=== PATIENT | female | born 1945 | race American Indian/Alaskan Native ===

== ENCOUNTER 2021-04-13 12:13 | Inpatient (IN) | payer MEDICARE ==
--- NOTE | 2021-04-13 19:34 | Consultation ---
History of Present Illness - Reason for Consult Consult date: 04/13/21 Medical management Requesting physician: JASON OSHEA - History of Present Illness 75 YO Female with Vascular Dementia with Behavioral Disturbance, Cerebral Atherosclerosis, HTN, DM, Gout, Hypothyroidism, Mild Intermittent Asthma, Osteoperosis, LDD admitted to [facility] for psychiatric stabilization. Patient seen and evaluated in the recreation room. No reported nursing events. Patient denies fever, chills, chest pain, palpitation, productive cough, skin rash, recent ill contact, or known exposure to COVID-19. Past History Past Medical History: diabetes, hypertension, hypothyroidism, other (See HPI) Past Surgical History: total hip replacement, Other (Pacemaker placement) Social history: single Family history: diabetes, hypertension Medications and Allergies Allergies Allergy/AdvReac Type Severity Reaction Status Date / Time No Known Allergies Allergy Unverified 04/13/21 15:01 Home Medications Medication Instructions Recorded Confirmed Last Taken Type Furosemide [Lasix TAB] 40 mg PO QDAY 04/13/21 04/13/21 Unknown History Levothyroxine [Synthroid] 75 mcg PO QAM 04/13/21 04/13/21 Unknown History Magnesium Oxide [Mag-Ox] 400 mg PO BID 04/13/21 04/13/21 Unknown History Montelukast [Singulair] 10 mg PO QPM 04/13/21 04/13/21 Unknown History OLANZapine [Olanzapine] 5 mg PO Q4HR PRN 04/13/21 04/13/21 04/11/21 17:39 History allopurinoL [Zyloprim] 150 mg PO QDAY 04/13/21 04/13/21 Unknown History calcitrioL [Rocaltrol] 0.25 mcg PO QWEEK 04/13/21 04/13/21 04/12/21 09:00 History cloNIDine [Catapres] 0.1 mg PO DAILY 04/13/21 04/13/21 Unknown History glipiZIDE [Glucotrol] 5 mg PO QDAY 04/13/21 04/13/21 Unknown History hydrALAZINE [Apresoline] 50 mg PO TID 04/13/21 04/13/21 Unknown History methocarbamoL [Methocarbamol] 500 mg PO TID PRN 04/13/21 04/13/21 Unknown History Review of Systems Constitutional: no weight loss, no weight gain, no fever, no chills Ears, nose, mouth and throat: no ear pain, no decreased hearing, no nose pain, no sinus pressure Cardiovascular: no chest pain, no palpitations, no edema, no syncope Respiratory: no cough, no excessive sputum, no hemoptysis Gastrointestinal: no abdominal pain, no nausea Genitourinary Female: no pelvic pain, no flank pain, no dysuria Rectal: no pain, no incontinence, no bleeding Musculoskeletal: no neck stiffness, no shooting arm pain, no low back pain, no leg numbness/tingling, no redness of joints Integumentary: no rash, no pruritis, no redness, no sores, no wounds Neurological: no transient paralysis, no weakness, no tingling, no seizures, no syncope Psychiatric: no anxiety, no change in sleep habits, no insomnia Endocrine: no cold intolerance, no heat intolerance, no polyphagia, no excessive thirst, no nocturia Hematologic/Lymphatic: no easy bruising, no easy bleeding, no lymphedema Allergic/Immunologic: no urticaria, no allergic rhinitis, no anaphylaxis Exam - Constitutional General appearance: Present: obese - EENT Eyes: Present: PERRL ENT: hearing intact, clear oral mucosa - Neck Neck: Present: supple, normal ROM - Respiratory Respiratory effort: normal Respiratory: bilateral: CTA - Cardiovascular Heart Sounds: Present: S1 & S2. Absent: rub, click - Extremities Extremities: pulses symmetrical, No edema Peripheral Pulses: within normal limits - Abdominal General gastrointestinal: Present: soft, non-tender, non-distended, normal bowel sounds Female genitourinary: Present: normal - Integumentary Integumentary: Present: clear, warm, dry - Musculoskeletal Musculoskeletal: gait normal, strength equal bilaterally - Psychiatric Psychiatric: appropriate mood/affect, intact judgment & insight - Neurologic Neurologic: CNII-XII intact, moves all extremities Results - Labs CBC & Chem 7: 04/15/21 05:37 04/15/21 05:37 Assessment and Plan - Patient Problems (1) Vascular dementia with behavior disturbance Current Visit: Yes Status: Acute Plan to address problem: Verbal prompting, verbal redirection, some benzodiazepine therapy as clinically indicated. (2) HTN (hypertension) Current Visit: Yes Status: Acute Qualifiers: Hypertension type: primary hypertension Qualified Code(s): I10 - Essential (primary) hypertension Plan to address problem: Monitor blood pressure every shift, continue medical management. (3) Diabetes Current Visit: Yes Status: Acute Plan to address problem: Consistent carbohydrate diet, insulin protocol, hypoglycemia protocol. (4) Gout Current Visit: Yes Status: Chronic Plan to address problem: Pain control, continue medical management. (5) Hypothyroidism Current Visit: Yes Status: Acute Plan to address problem: Continue Synthroid therapy, (6) Cerebral atherosclerosis Current Visit: Yes Status: Acute Plan to address problem: Risk factor reduction, antiplatelet therapy,
[2021-04-13] MEDS: MAGNESIUM OXIDE 400 MG TAB PO SCH (21:30)
[2021-04-13] MEDS: hydrALAZINE 25 MG TAB PO SCH (21:30)
[2021-04-14] MEDS: LEVOTHYROXINE 75 MCG TAB PO SCH (05:52)
[2021-04-14] MEDS: hydrALAZINE 25 MG TAB PO SCH ×3 (08:58→20:24)
[2021-04-14] MEDS: MAGNESIUM OXIDE 400 MG TAB PO SCH ×2 (09:19→21:56)
[2021-04-14] MEDS: cloNIDine 0.1 MG TAB PO SCH (09:20)
[2021-04-14] MEDS: allopurinoL 100 MG TAB PO SCH (09:20)
[2021-04-14] MEDS: FUROSEMIDE 40 MG TAB PO SCH (09:20)
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
[2021-04-14] MEDS ORDERED: hydrOXYzine PAMOATE 25 MG CAP PO PRN (11:00)
[2021-04-14] MEDS: glipiZIDE 5 MG TAB PO SCH (11:30)
[2021-04-14] MEDS: SERTRALINE 25 MG TAB PO SCH (13:32)
[2021-04-14] MEDS: MONTELUKAST 10 MG TAB PO SCH (17:24)
[2021-04-14] MEDS ORDERED: DEXTROSE 50% IN WATER (25GM) 50 ML SYRINGE IV PRN (17:43)
[2021-04-14] MEDS: INSULIN LISPRO 100 UNIT/ML SUB-Q SCH (20:22)
[2021-04-15] MEDS: INSULIN LISPRO 100 UNIT/ML SUB-Q SCH ×5 (03:12→21:39)
[2021-04-15] MEDS: LEVOTHYROXINE 75 MCG TAB PO SCH (05:48)
[2021-04-15 07:15] LABS: Albumin 2.7 g/dL (3.9-5); Chol/HDL Ratio 3.21 %
[2021-04-15] MEDS: hydrALAZINE 25 MG TAB PO SCH ×3 (08:49→20:21)
[2021-04-15] MEDS: MAGNESIUM OXIDE 400 MG TAB PO SCH ×2 (10:06→21:39)
[2021-04-15] MEDS: cloNIDine 0.1 MG TAB PO SCH (10:07)
[2021-04-15] MEDS: SERTRALINE 25 MG TAB PO SCH (10:07)
[2021-04-15] MEDS: allopurinoL 100 MG TAB PO SCH (10:07)
[2021-04-15] MEDS: FUROSEMIDE 40 MG TAB PO SCH (10:07)
[2021-04-15] MEDS: glipiZIDE 5 MG TAB PO SCH (10:07)
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
[2021-04-15 11:07] LABS: Hematocrit 30.4 % (30.3-42.9); Hemoglobin 9.9 gm/dl (10.1-14.3); Mean Corpuscular HGB Conc 32 % (30-34); Mean Corpuscular Volume 80 fl (79-97); Platelet Count 167 K/mm3 (140-440); Red Cell Distribution Width 17.3 % (13.2-15.2)
[2021-04-15 14:55] LABS: Band Neutrophils # (Manual) 0.1 K/mm3; Total Cells Counted 100
[2021-04-15] MEDS: MONTELUKAST 10 MG TAB PO SCH (18:04)
[2021-04-16] MEDS: LEVOTHYROXINE 75 MCG TAB PO SCH (06:04)
[2021-04-16] MEDS: INSULIN LISPRO 100 UNIT/ML SUB-Q SCH ×4 (06:59→21:06)
--- NOTE | 2021-04-16 08:21 | Progress Note ---
Subjective Date of service: 04/16/21 Principal diagnosis: Dementia with Behavioral Disturbance Subjective Comment: The patient was seen in her room. The patient reports mood as "ok"; she presents with some confusion, unable to state the current month and her location. Unable to assess SI/HI AVHs due to her state of confusion. Per nurse, " Patient has minimum interactions with peers, at confused and forgetful, she was medication compliant, [place] patient requires sba assistance getting up from bed to wheelchair, slept for approximately 5 1/2hrs. Current laying in bed awake, no distress noted. Will continue to monitor." REVIEW OF SYSTEMS Constitutional: Negative for weight loss ENT: Negative for stridor Respiratory: Negative for cough or hemoptysis All other systems reviewed and are negative MENTAL STATUS EXAMINATION General Appearance and Behavior: Age appropriate, good hygiene, wearing appropriate clothes. Cooperation: Cooperative Psychomotor Behavior: Psychomotor normal Mood: "ok" Affect and affective range: congruent with stated mood, tearful Thought Process: circumstantial, confused Thought Content: Not suicidal Speech: Normal volume, Regular rate and rhythm, Suicidal Ideation: Denies Homicidal Ideation: Denies Hallucinations: Denies Delusions: None Impulse Control: Impaired Insight and Judgment: fair Memory: Poor Attention: Distractible Orientation: Alert and oriented to self Assessment and Plan (1) Dementia with Behavioral Disturbance Treatment Plan Patient admitted for inpatient psychiatric evaluation, medication adjustment and close monitoring The patient's behavior, mood, sleep and appetite will be closely monitored. Patient enrolled in individual and group therapeutic sessions and encouraged to attend. Patient provided with a safe and structured environment. Patient's physical health needs will be addressed by the Hospitalist. Hospitalist Consulted Labs including CBC, CMP, Lipid profile and Hemoglobin A1C levels ordered for baseline reference Social Assessment will be completed and the Wastewater Project Manager will work with patient and family to ensure a suitable and safe disposition Medication adjustment will be made as clinically indicated No changes made today Continue Zoloft 25mg po daily Continue Vistaril 25mg po BID Usual Wellness Mormon/Preservation: - Start Trazodone 50 mg po QHS & 50 mg po QHS PRN between 10 PM & 2 AM for insomnia - Start Melatonin 5 mg po QHS to promote circadian rhythm The patient agreed on the treatment plan, understood the risk, benefit, alternative treatment, potential consequence of no treatment, and gave informed consent. Estimated days: 5 Post hospital care: primary care provider, psychiatric provider Case staffed with Dr. Diaz Medications and Allergies Medications and Allergies Allergies Allergy/AdvReac Type Severity Reaction Status Date / Time No Known Allergies Allergy Unverified 04/13/21 15:01 Home Medications Medication Instructions Recorded Confirmed Last Taken Type Furosemide [Lasix TAB] 40 mg PO QDAY 04/13/21 04/13/21 Unknown History Levothyroxine [Synthroid] 75 mcg PO QAM 04/13/21 04/13/21 Unknown History Magnesium Oxide [Mag-Ox] 400 mg PO BID 04/13/21 04/13/21 Unknown History Montelukast [Singulair] 10 mg PO QPM 04/13/21 04/13/21 Unknown History OLANZapine [Olanzapine] 5 mg PO Q4HR PRN 04/13/21 04/13/21 04/11/21 17:39 History allopurinoL [Zyloprim] 150 mg PO QDAY 04/13/21 04/13/21 Unknown History calcitrioL [Rocaltrol] 0.25 mcg PO QWEEK 04/13/21 04/13/21 04/12/21 09:00 History cloNIDine [Catapres] 0.1 mg PO DAILY 04/13/21 04/13/21 Unknown History glipiZIDE [Glucotrol] 5 mg PO QDAY 04/13/21 04/13/21 Unknown History hydrALAZINE [Apresoline] 50 mg PO TID 04/13/21 04/13/21 Unknown History methocarbamoL [Methocarbamol] 500 mg PO TID PRN 04/13/21 04/13/21 Unknown History Active Meds: Active Medications Allopurinol (Allopurinol 100 Mg Tab) 150 mg PO QDAY [facility] Last Admin: 04/15/21 10:07 Dose: 150 mg Documented by: Calcitriol (Calcitriol 0.25 Mcg Cap) 0.25 mcg PO [facility] [place] HCl (Clonidine 0.1 Mg Tab) 0.1 mg PO DAILY [facility] Last Admin: 04/15/21 10:07 Dose: 0.1 mg Documented by: Dextrose (Dextrose 50% In Water (25gm) 50 Ml Syringe) 50 ml IV Q30MIN PRN; Protocol PRN Reason: Hypoglycemia Furosemide (Furosemide 40 Mg Tab) 40 mg PO QDAY [facility] Last Admin: 04/15/21 10:07 Dose: 40 mg Documented by: Glipizide (Glipizide 5 Mg Tab) 5 mg PO QDAY [facility] Last Admin: 04/15/21 10:07 Dose: 5 mg Documented by: Hydralazine HCl (Hydralazine 25 Mg Tab) 50 mg PO TID [facility] Last Admin: 04/15/21 20:21 Dose: 50 mg Documented by: Hydroxyzine Pamoate (Hydroxyzine Pamoate 25 Mg Cap) 25 mg PO BID PRN PRN Reason: Anxiety Insulin Human Lispro (Insulin Lispro 100 Unit/Ml) 0 unit SUB-Q ACHS [facility]; Protocol Last Admin: 04/16/21 06:59 Dose: 2 unit Documented by: Levothyroxine Sodium (Levothyroxine 75 Mcg Tab) 75 mcg PO 0600 [facility] Last Admin: 04/16/21 06:04 Dose: 75 mcg Documented by: Magnesium Oxide (Magnesium Oxide 400 Mg Tab) 400 mg PO BID [facility] Last Admin: 04/15/21 21:39 Dose: 400 mg Documented by: Methocarbamol (Methocarbamol 500 Mg Tab) 500 mg PO TID PRN PRN Reason: muscle spasms Montelukast Sodium (Montelukast 10 Mg Tab) 10 mg PO QPM [facility] Last Admin: 04/15/21 18:04 Dose: 10 mg Documented by: Sertraline HCl (Sertraline 25 Mg Tab) 25 mg PO QDAY [facility] Last Admin: 04/15/21 10:07 Dose: 25 mg Documented by: Results - Results Labs/Vitals: Laboratory Last Values WBC 7.3 K/mm3 (4.5-11.0) 04/15/21 05:37 RBC 3.80 M/mm3 (3.65-5.03) 04/15/21 05:37 Hgb 9.9 gm/dl (10.1-14.3) L 04/15/21 05:37 Hct 30.4 % (30.3-42.9) 04/15/21 05:37 MCV 80 fl (79-97) 04/15/21 05:37 MCH 26 pg (28-32) L 04/15/21 05:37 MCHC 32 % (30-34) 04/15/21 05:37 RDW 17.3 % (13.2-15.2) H 04/15/21 05:37 Plt Count 167 K/mm3 (140-440) 04/15/21 05:37 Add Manual Diff Complete 04/15/21 05:37 Total Counted 100 04/15/21 05:37 Seg Neuts % (Manual) 63.0 % (40.0-70.0) 04/15/21 05:37 Band Neutrophils % 1.0 % 04/15/21 05:37 Lymphocytes % (Manual) 31.0 % (13.4-35.0) 04/15/21 05:37 Monocytes % (Manual) 3.0 % (0.0-7.3) 04/15/21 05:37 Eosinophils % (Manual) 1.0 % (0.0-4.3) 04/15/21 05:37 Metamyelocytes % 1.0 % 04/15/21 05:37 Nucleated RBC % Not Reportable 04/15/21 05:37 Seg Neutrophils # Man 4.6 K/mm3 (1.8-7.7) 04/15/21 05:37 Band Neutrophils # 0.1 K/mm3 04/15/21 05:37 Lymphocytes # (Manual) 2.3 K/mm3 (1.2-5.4) 04/15/21 05:37 Abs React Lymphs (Man) 0.0 K/mm3 04/15/21 05:37 Monocytes # (Manual) 0.2 K/mm3 (0.0-0.8) 04/15/21 05:37 Eosinophils # (Manual) 0.1 K/mm3 (0.0-0.4) 04/15/21 05:37 Basophils # (Manual) 0.0 K/mm3 (0.0-0.1) 04/15/21 05:37 Metamyelocytes # 0.1 K/mm3 04/15/21 05:37 Myelocytes # 0.0 K/mm3 04/15/21 05:37 Promyelocytes # 0.0 K/mm3 04/15/21 05:37 Blast Cells # 0.0 K/mm3 04/15/21 05:37 WBC Morphology Not Reportable 04/15/21 05:37 Hypersegmented Neuts Not Reportable 04/15/21 05:37 Hyposegmented Neuts Not Reportable 04/15/21 05:37 Hypogranular Neuts Not Reportable 04/15/21 05:37 Smudge Cells Not Reportable 04/15/21 05:37 Toxic Granulation Not Reportable 04/15/21 05:37 Toxic Vacuolation Not Reportable 04/15/21 05:37 Dohle Bodies Not Reportable 04/15/21 05:37 Pelger-Huet Anomaly Not Reportable 04/15/21 05:37 Garry Rods Not Reportable 04/15/21 05:37 Platelet Estimate Not Reportable 04/15/21 05:37 Clumped Platelets Not Reportable 04/15/21 05:37 Plt Clumps, EDTA Not Reportable 04/15/21 05:37 Large Platelets Not Reportable 04/15/21 05:37 Giant Platelets Not Reportable 04/15/21 05:37 Platelet Satelliting Not Reportable 04/15/21 05:37 Plt Morphology Comment Not Reportable 04/15/21 05:37 RBC Morphology Not Reportable 04/15/21 05:37 Dimorphic RBCs Not Reportable 04/15/21 05:37 Polychromasia Not Reportable 04/15/21 05:37 Hypochromasia Not Reportable 04/15/21 05:37 Poikilocytosis Not Reportable 04/15/21 05:37 Anisocytosis Not Reportable 04/15/21 05:37 Microcytosis Not Reportable 04/15/21 05:37 Macrocytosis Not Reportable 04/15/21 05:37 Spherocytes Not Reportable 04/15/21 05:37 Pappenheimer Bodies Not Reportable 04/15/21 05:37 Sickle Cells Not Reportable 04/15/21 05:37 Target Cells Not Reportable 04/15/21 05:37 Tear Drop Cells Not Reportable 04/15/21 05:37 Ovalocytes Not Reportable 04/15/21 05:37 Helmet Cells Not Reportable 04/15/21 05:37 [place] Bodies Not Reportable 04/15/21 05:37 [place] Rings Not Reportable 04/15/21 05:37 [place] Cells Not Reportable 04/15/21 05:37 Bite Cells Not Reportable 04/15/21 05:37 Crenated Cell Not Reportable 04/15/21 05:37 Elliptocytes Not Reportable 04/15/21 05:37 Acanthocytes (Spur) Not Reportable 04/15/21 05:37 Rouleaux Not Reportable 04/15/21 05:37 Hemoglobin C Crystals Not Reportable 04/15/21 05:37 Schistocytes Not Reportable 04/15/21 05:37 Malaria parasites Not Reportable 04/15/21 05:37 [place] Bodies Not Reportable 04/15/21 05:37 Hem Pathologist Commnt No 04/15/21 05:37 Sodium 144 mmol/L (137-145) 04/15/21 05:37 Potassium 4.3 mmol/L (3.6-5.0) 04/15/21 05:37 Chloride 108.1 mmol/L (98-107) H 04/15/21 05:37 Carbon Dioxide 23 mmol/L (22-30) 04/15/21 05:37 Anion Gap 17 mmol/L 04/15/21 05:37 BUN 44 mg/dL (7-17) H 04/15/21 05:37 Creatinine 1.8 mg/dL (0.6-1.2) H 04/15/21 05:37 Estimated GFR 33 ml/min 04/15/21 05:37 BUN/Creatinine Ratio 24 % 04/15/21 05:37 Glucose 150 mg/dL (65-100) H 04/15/21 05:37 POC Glucose 173 mg/dL (70-105) H 04/16/21 06:28 Hemoglobin A1c 6.7 % (4-6) H 04/15/21 05:37 Calcium 10.0 mg/dL (8.4-10.2) 04/15/21 05:37 Total Bilirubin 0.30 mg/dL (0.1-1.2) 04/15/21 05:37 AST 27 units/L (5-40) 04/15/21 05:37 ALT 28 units/L (7-56) 04/15/21 05:37 Alkaline Phosphatase 78 units/L (35-129) 04/15/21 05:37 Total Protein 5.9 g/dL (6.3-8.2) L 04/15/21 05:37 Albumin 2.7 g/dL (3.9-5) L 04/15/21 05:37 Albumin/Globulin Ratio 0.8 % 04/15/21 05:37 Triglycerides 73 mg/dL (2-149) 04/15/21 05:37 Cholesterol 106 mg/dL (50-199) 04/15/21 05:37 LDL Cholesterol Direct 59 mg/dL (50-130) 04/15/21 05:37 HDL Cholesterol 33 mg/dL (40-59) L 04/15/21 05:37 Cholesterol/HDL Ratio 3.21 % 04/15/21 05:37 TSH 2.780 mlU/mL (0.270-4.200) 04/15/21 05:37 Last Vital Signs Temp 97.8 F 04/15/21 19:17 Pulse 61 04/15/21 20:21 Resp 18 04/15/21 19:17 BP 179/67 04/15/21 20:21 Pulse Ox 96 04/15/21 19:17
[2021-04-16] MEDS: hydrALAZINE 25 MG TAB PO SCH ×3 (08:33→20:45)
[2021-04-16] MEDS: glipiZIDE 5 MG TAB PO SCH (09:17)
[2021-04-16] MEDS: cloNIDine 0.1 MG TAB PO SCH (09:17)
[2021-04-16] MEDS: MAGNESIUM OXIDE 400 MG TAB PO SCH ×2 (09:17→21:05)
[2021-04-16] MEDS: allopurinoL 100 MG TAB PO SCH (09:17)
[2021-04-16] MEDS: SERTRALINE 25 MG TAB PO SCH (09:17)
[2021-04-16] MEDS: FUROSEMIDE 40 MG TAB PO SCH (09:17)
--- NOTE | 2021-04-16 13:31 | Progress Note ---
Assessment and Plan - Patient Problems (1) Vascular dementia with behavior disturbance Current Visit: Yes Status: Acute Plan to address problem: Verbal prompting, verbal redirection, some benzodiazepine therapy as clinically indicated. (2) HTN (hypertension) Current Visit: Yes Status: Acute Qualifiers: Hypertension type: primary hypertension Qualified Code(s): I10 - Essential (primary) hypertension Plan to address problem: Monitor blood pressure every shift, continue medical management. (3) Diabetes Current Visit: Yes Status: Acute Plan to address problem: Consistent carbohydrate diet, insulin protocol, hypoglycemia protocol. (4) Gout Current Visit: Yes Status: Chronic Plan to address problem: Pain control, continue medical management. (5) Hypothyroidism Current Visit: Yes Status: Acute Plan to address problem: Continue Synthroid therapy, (6) Cerebral atherosclerosis Current Visit: Yes Status: Acute Plan to address problem: Risk factor reduction, antiplatelet therapy, History Interval history: 75 YO Female with Vascular Dementia with Behavioral Disturbance, Cerebral Atherosclerosis, HTN, DM, Gout, Hypothyroidism, Mild Intermittent Asthma, Osteoperosis, LDD admitted to [facility] for psychiatric stabilization. No reported nursing events. Pt denies pain. Hospitalist Physical - Constitutional Vitals: Temp Pulse Resp BP Pulse Ox 98.1 F 73 20 137/78 99 04/16/21 08:20 04/16/21 09:17 04/16/21 08:20 04/16/21 09:17 04/16/21 08:20 General appearance: Present: obese - EENT Eyes: Present: PERRL, EOM intact ENT: hearing intact - Neck Neck: Present: supple - Respiratory Respiratory: bilateral: CTA - Cardiovascular Rhythm: regular Heart Sounds: Present: S1 & S2 - Extremities Extremities: no ischemia Peripheral Pulses: within normal limits - Abdominal General gastrointestinal: soft, non-tender, non-distended - Integumentary Integumentary: Present: clear, dry - Psychiatric Psychiatric: cooperative - Neurologic Neurologic: CNII-XII intact Results - Labs CBC & Chem 7: 04/15/21 05:37 04/15/21 05:37 Labs: Laboratory Last Values WBC 7.3 K/mm3 (4.5-11.0) 04/15/21 05:37 RBC 3.80 M/mm3 (3.65-5.03) 04/15/21 05:37 Hgb 9.9 gm/dl (10.1-14.3) L 04/15/21 05:37 Hct 30.4 % (30.3-42.9) 04/15/21 05:37 MCV 80 fl (79-97) 04/15/21 05:37 MCH 26 pg (28-32) L 04/15/21 05:37 MCHC 32 % (30-34) 04/15/21 05:37 RDW 17.3 % (13.2-15.2) H 04/15/21 05:37 Plt Count 167 K/mm3 (140-440) 04/15/21 05:37 Add Manual Diff Complete 04/15/21 05:37 Total Counted 100 04/15/21 05:37 Seg Neuts % (Manual) 63.0 % (40.0-70.0) 04/15/21 05:37 Band Neutrophils % 1.0 % 04/15/21 05:37 Lymphocytes % (Manual) 31.0 % (13.4-35.0) 04/15/21 05:37 Monocytes % (Manual) 3.0 % (0.0-7.3) 04/15/21 05:37 Eosinophils % (Manual) 1.0 % (0.0-4.3) 04/15/21 05:37 Metamyelocytes % 1.0 % 04/15/21 05:37 Nucleated RBC % Not Reportable 04/15/21 05:37 Seg Neutrophils # Man 4.6 K/mm3 (1.8-7.7) 04/15/21 05:37 Band Neutrophils # 0.1 K/mm3 04/15/21 05:37 Lymphocytes # (Manual) 2.3 K/mm3 (1.2-5.4) 04/15/21 05:37 Abs React Lymphs (Man) 0.0 K/mm3 04/15/21 05:37 Monocytes # (Manual) 0.2 K/mm3 (0.0-0.8) 04/15/21 05:37 Eosinophils # (Manual) 0.1 K/mm3 (0.0-0.4) 04/15/21 05:37 Basophils # (Manual) 0.0 K/mm3 (0.0-0.1) 04/15/21 05:37 Metamyelocytes # 0.1 K/mm3 04/15/21 05:37 Myelocytes # 0.0 K/mm3 04/15/21 05:37 Promyelocytes # 0.0 K/mm3 04/15/21 05:37 Blast Cells # 0.0 K/mm3 04/15/21 05:37 WBC Morphology Not Reportable 04/15/21 05:37 Hypersegmented Neuts Not Reportable 04/15/21 05:37 Hyposegmented Neuts Not Reportable 04/15/21 05:37 Hypogranular Neuts Not Reportable 04/15/21 05:37 Smudge Cells Not Reportable 04/15/21 05:37 Toxic Granulation Not Reportable 04/15/21 05:37 Toxic Vacuolation Not Reportable 04/15/21 05:37 Dohle Bodies Not Reportable 04/15/21 05:37 Pelger-Huet Anomaly Not Reportable 04/15/21 05:37 Garry Rods Not Reportable 04/15/21 05:37 Platelet Estimate Not Reportable 04/15/21 05:37 Clumped Platelets Not Reportable 04/15/21 05:37 Plt Clumps, EDTA Not Reportable 04/15/21 05:37 Large Platelets Not Reportable 04/15/21 05:37 Giant Platelets Not Reportable 04/15/21 05:37 Platelet Satelliting Not Reportable 04/15/21 05:37 Plt Morphology Comment Not Reportable 04/15/21 05:37 RBC Morphology Not Reportable 04/15/21 05:37 Dimorphic RBCs Not Reportable 04/15/21 05:37 Polychromasia Not Reportable 04/15/21 05:37 Hypochromasia Not Reportable 04/15/21 05:37 Poikilocytosis Not Reportable 04/15/21 05:37 Anisocytosis Not Reportable 04/15/21 05:37 Microcytosis Not Reportable 04/15/21 05:37 Macrocytosis Not Reportable 04/15/21 05:37 Spherocytes Not Reportable 04/15/21 05:37 Pappenheimer Bodies Not Reportable 04/15/21 05:37 Sickle Cells Not Reportable 04/15/21 05:37 Target Cells Not Reportable 04/15/21 05:37 Tear Drop Cells Not Reportable 04/15/21 05:37 Ovalocytes Not Reportable 04/15/21 05:37 Helmet Cells Not Reportable 04/15/21 05:37 [place] Bodies Not Reportable 04/15/21 05:37 [place] Rings Not Reportable 04/15/21 05:37 [place] Cells Not Reportable 04/15/21 05:37 Bite Cells Not Reportable 04/15/21 05:37 Crenated Cell Not Reportable 04/15/21 05:37 Elliptocytes Not Reportable 04/15/21 05:37 Acanthocytes (Spur) Not Reportable 04/15/21 05:37 Rouleaux Not Reportable 04/15/21 05:37 Hemoglobin C Crystals Not Reportable 04/15/21 05:37 Schistocytes Not Reportable 04/15/21 05:37 Malaria parasites Not Reportable 04/15/21 05:37 [place] Bodies Not Reportable 04/15/21 05:37 Hem Pathologist Commnt No 04/15/21 05:37 Sodium 144 mmol/L (137-145) 04/15/21 05:37 Potassium 4.3 mmol/L (3.6-5.0) 04/15/21 05:37 Chloride 108.1 mmol/L (98-107) H 04/15/21 05:37 Carbon Dioxide 23 mmol/L (22-30) 04/15/21 05:37 Anion Gap 17 mmol/L 04/15/21 05:37 BUN 44 mg/dL (7-17) H 04/15/21 05:37 Creatinine 1.8 mg/dL (0.6-1.2) H 04/15/21 05:37 Estimated GFR 33 ml/min 04/15/21 05:37 BUN/Creatinine Ratio 24 % 04/15/21 05:37 Glucose 150 mg/dL (65-100) H 04/15/21 05:37 POC Glucose 161 mg/dL (70-105) H 04/16/21 11:31 Hemoglobin A1c 6.7 % (4-6) H 04/15/21 05:37 Calcium 10.0 mg/dL (8.4-10.2) 04/15/21 05:37 Total Bilirubin 0.30 mg/dL (0.1-1.2) 04/15/21 05:37 AST 27 units/L (5-40) 04/15/21 05:37 ALT 28 units/L (7-56) 04/15/21 05:37 Alkaline Phosphatase 78 units/L (35-129) 04/15/21 05:37 Total Protein 5.9 g/dL (6.3-8.2) L 04/15/21 05:37 Albumin 2.7 g/dL (3.9-5) L 04/15/21 05:37 Albumin/Globulin Ratio 0.8 % 04/15/21 05:37 Triglycerides 73 mg/dL (2-149) 04/15/21 05:37 Cholesterol 106 mg/dL (50-199) 04/15/21 05:37 LDL Cholesterol Direct 59 mg/dL (50-130) 04/15/21 05:37 HDL Cholesterol 33 mg/dL (40-59) L 04/15/21 05:37 Cholesterol/HDL Ratio 3.21 % 04/15/21 05:37 TSH 2.780 mlU/mL (0.270-4.200) 04/15/21 05:37 Ruelas/IV: Voiding Method Diaper Active Medications - Current Medications Current Medications: Generic Name Dose Route Start Last Admin Trade Name Freq PRN Reason Stop Dose Admin Allopurinol 150 mg 04/14/21 10:00 04/16/21 09:17 Allopurinol 100 Mg Tab PO 150 mg QDAY MARISEL Administration Calcitriol 0.25 mcg 04/20/21 10:00 Calcitriol 0.25 Mcg Cap PO Tu MARISEL Clonidine HCl 0.1 mg 04/14/21 10:00 04/16/21 09:17 Clonidine 0.1 Mg Tab PO 0.1 mg DAILY MARISEL Administration Dextrose 50 ml 04/14/21 17:43 Dextrose 50% In Water (25gm) 50 Ml Syringe IV Q30MIN PRN Hypoglycemia Protocol Furosemide 40 mg 04/14/21 10:00 04/16/21 09:17 Furosemide 40 Mg Tab PO 40 mg QDAY MARISEL Administration Glipizide 5 mg 04/14/21 10:00 04/16/21 09:17 Glipizide 5 Mg Tab PO 5 mg QDAY MARISEL Administration Hydralazine HCl 50 mg 04/13/21 20:00 04/16/21 08:33 Hydralazine 25 Mg Tab PO 50 mg TID MARISEL Administration Hydroxyzine Pamoate 25 mg 04/14/21 11:00 Hydroxyzine Pamoate 25 Mg Cap PO BID PRN Anxiety Insulin Human Lispro 0 unit 04/15/21 11:30 04/16/21 06:59 Insulin Lispro 100 Unit/Ml SUB-Q 2 unit ACHS MARISEL Administration Protocol Levothyroxine Sodium 75 mcg 04/14/21 06:00 04/16/21 06:04 Levothyroxine 75 Mcg Tab PO 75 mcg 0600 MARISEL Administration Magnesium Oxide 400 mg 04/13/21 22:00 04/16/21 09:17 Magnesium Oxide 400 Mg Tab PO 400 mg BID MARISEL Administration Methocarbamol 500 mg 04/13/21 19:34 Methocarbamol 500 Mg Tab PO TID PRN muscle spasms Montelukast Sodium 10 mg 04/14/21 18:00 04/15/21 18:04 Montelukast 10 Mg Tab PO 10 mg QPM MARISEL Administration Sertraline HCl 25 mg 04/14/21 11:00 04/16/21 09:17 Sertraline 25 Mg Tab PO 25 mg QDAY MARISEL Administration
[2021-04-16] MEDS: MONTELUKAST 10 MG TAB PO SCH (17:15)
[2021-04-17] MEDS: LEVOTHYROXINE 75 MCG TAB PO SCH (05:23)
[2021-04-17] MEDS: INSULIN LISPRO 100 UNIT/ML SUB-Q SCH ×4 (07:27→21:26)
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
[2021-04-17] MEDS: allopurinoL 100 MG TAB PO SCH (09:17)
[2021-04-17] MEDS: MAGNESIUM OXIDE 400 MG TAB PO SCH ×2 (09:17→21:26)
[2021-04-17] MEDS: SERTRALINE 25 MG TAB PO SCH (09:17)
[2021-04-17] MEDS: glipiZIDE 5 MG TAB PO SCH (09:17)
[2021-04-17] MEDS: hydrALAZINE 25 MG TAB PO SCH ×3 (09:17→19:58)
[2021-04-17] MEDS: FUROSEMIDE 40 MG TAB PO SCH (09:17)
[2021-04-17] MEDS: cloNIDine 0.1 MG TAB PO SCH (09:18)
[2021-04-17] MEDS: MONTELUKAST 10 MG TAB PO SCH (17:41)
[2021-04-17] MEDS ORDERED: traZODone 50 MG TAB PO SCH (22:00)
[2021-04-18] MEDS: LEVOTHYROXINE 75 MCG TAB PO SCH (05:57)
[2021-04-18] MEDS: INSULIN LISPRO 100 UNIT/ML SUB-Q SCH ×4 (07:38→21:45)
[2021-04-18] MEDS: hydrALAZINE 25 MG TAB PO SCH ×3 (07:42→20:18)
[2021-04-18] MEDS: allopurinoL 100 MG TAB PO SCH (09:24)
[2021-04-18] MEDS: SERTRALINE 25 MG TAB PO SCH (09:25)
[2021-04-18] MEDS: MAGNESIUM OXIDE 400 MG TAB PO SCH ×2 (09:25→21:45)
[2021-04-18] MEDS: cloNIDine 0.1 MG TAB PO SCH (09:25)
[2021-04-18] MEDS: FUROSEMIDE 40 MG TAB PO SCH (09:25)
[2021-04-18] MEDS: glipiZIDE 5 MG TAB PO SCH (09:25)
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
--- NOTE | 2021-04-18 17:19 | Progress Note ---
Assessment and Plan - Patient Problems (1) Vascular dementia with behavior disturbance Current Visit: Yes Status: Acute Plan to address problem: Verbal prompting, verbal redirection, some benzodiazepine therapy as clinically indicated. (2) HTN (hypertension) Current Visit: Yes Status: Acute Qualifiers: Hypertension type: primary hypertension Qualified Code(s): I10 - Essential (primary) hypertension Plan to address problem: Monitor blood pressure every shift, continue medical management. (3) Diabetes Current Visit: Yes Status: Acute Plan to address problem: Consistent carbohydrate diet, insulin protocol, hypoglycemia protocol. (4) Gout Current Visit: Yes Status: Chronic Plan to address problem: Pain control, continue medical management. (5) Hypothyroidism Current Visit: Yes Status: Acute Plan to address problem: Continue Synthroid therapy, (6) Cerebral atherosclerosis Current Visit: Yes Status: Acute Plan to address problem: Risk factor reduction, antiplatelet therapy, History Interval history: 75 YO Female with Vascular Dementia with Behavioral Disturbance, Cerebral Atherosclerosis, HTN, DM, Gout, Hypothyroidism, Mild Intermittent Asthma, Osteoperosis, LDD admitted to [facility] for psychiatric stabilization. No reported nursing events. Pt denies pain. Hospitalist Physical - Constitutional Vitals: Temp Pulse Resp BP Pulse Ox 97.8 F 65 18 140/61 99 04/18/21 07:33 04/18/21 14:31 04/18/21 07:33 04/18/21 14:31 04/18/21 14:28 General appearance: Present: no acute distress, obese - EENT Eyes: Present: PERRL ENT: hearing intact, hearing decreased - Neck Neck: Present: supple - Respiratory Respiratory effort: normal Respiratory: bilateral: CTA - Cardiovascular Rhythm: regular Heart Sounds: Present: S1 & S2 - Extremities Extremities: no ischemia Peripheral Pulses: within normal limits - Abdominal General gastrointestinal: soft, non-tender, non-distended - Integumentary Integumentary: Present: clear, dry - Psychiatric Psychiatric: cooperative - Neurologic Neurologic: CNII-XII intact Results - Labs CBC & Chem 7: 04/15/21 05:37 04/15/21 05:37 Labs: Laboratory Last Values WBC 7.3 K/mm3 (4.5-11.0) 04/15/21 05:37 RBC 3.80 M/mm3 (3.65-5.03) 04/15/21 05:37 Hgb 9.9 gm/dl (10.1-14.3) L 04/15/21 05:37 Hct 30.4 % (30.3-42.9) 04/15/21 05:37 MCV 80 fl (79-97) 04/15/21 05:37 MCH 26 pg (28-32) L 04/15/21 05:37 MCHC 32 % (30-34) 04/15/21 05:37 RDW 17.3 % (13.2-15.2) H 04/15/21 05:37 Plt Count 167 K/mm3 (140-440) 04/15/21 05:37 Add Manual Diff Complete 04/15/21 05:37 Total Counted 100 04/15/21 05:37 Seg Neuts % (Manual) 63.0 % (40.0-70.0) 04/15/21 05:37 Band Neutrophils % 1.0 % 04/15/21 05:37 Lymphocytes % (Manual) 31.0 % (13.4-35.0) 04/15/21 05:37 Monocytes % (Manual) 3.0 % (0.0-7.3) 04/15/21 05:37 Eosinophils % (Manual) 1.0 % (0.0-4.3) 04/15/21 05:37 Metamyelocytes % 1.0 % 04/15/21 05:37 Nucleated RBC % Not Reportable 04/15/21 05:37 Seg Neutrophils # Man 4.6 K/mm3 (1.8-7.7) 04/15/21 05:37 Band Neutrophils # 0.1 K/mm3 04/15/21 05:37 Lymphocytes # (Manual) 2.3 K/mm3 (1.2-5.4) 04/15/21 05:37 Abs React Lymphs (Man) 0.0 K/mm3 04/15/21 05:37 Monocytes # (Manual) 0.2 K/mm3 (0.0-0.8) 04/15/21 05:37 Eosinophils # (Manual) 0.1 K/mm3 (0.0-0.4) 04/15/21 05:37 Basophils # (Manual) 0.0 K/mm3 (0.0-0.1) 04/15/21 05:37 Metamyelocytes # 0.1 K/mm3 04/15/21 05:37 Myelocytes # 0.0 K/mm3 04/15/21 05:37 Promyelocytes # 0.0 K/mm3 04/15/21 05:37 Blast Cells # 0.0 K/mm3 04/15/21 05:37 WBC Morphology Not Reportable 04/15/21 05:37 Hypersegmented Neuts Not Reportable 04/15/21 05:37 Hyposegmented Neuts Not Reportable 04/15/21 05:37 Hypogranular Neuts Not Reportable 04/15/21 05:37 Smudge Cells Not Reportable 04/15/21 05:37 Toxic Granulation Not Reportable 04/15/21 05:37 Toxic Vacuolation Not Reportable 04/15/21 05:37 Dohle Bodies Not Reportable 04/15/21 05:37 Pelger-Huet Anomaly Not Reportable 04/15/21 05:37 Garry Rods Not Reportable 04/15/21 05:37 Platelet Estimate Not Reportable 04/15/21 05:37 Clumped Platelets Not Reportable 04/15/21 05:37 Plt Clumps, EDTA Not Reportable 04/15/21 05:37 Large Platelets Not Reportable 04/15/21 05:37 Giant Platelets Not Reportable 04/15/21 05:37 Platelet Satelliting Not Reportable 04/15/21 05:37 Plt Morphology Comment Not Reportable 04/15/21 05:37 RBC Morphology Not Reportable 04/15/21 05:37 Dimorphic RBCs Not Reportable 04/15/21 05:37 Polychromasia Not Reportable 04/15/21 05:37 Hypochromasia Not Reportable 04/15/21 05:37 Poikilocytosis Not Reportable 04/15/21 05:37 Anisocytosis Not Reportable 04/15/21 05:37 Microcytosis Not Reportable 04/15/21 05:37 Macrocytosis Not Reportable 04/15/21 05:37 Spherocytes Not Reportable 04/15/21 05:37 Pappenheimer Bodies Not Reportable 04/15/21 05:37 Sickle Cells Not Reportable 04/15/21 05:37 Target Cells Not Reportable 04/15/21 05:37 Tear Drop Cells Not Reportable 04/15/21 05:37 Ovalocytes Not Reportable 04/15/21 05:37 Helmet Cells Not Reportable 04/15/21 05:37 [place] Bodies Not Reportable 04/15/21 05:37 [place] Rings Not Reportable 04/15/21 05:37 [place] Cells Not Reportable 04/15/21 05:37 Bite Cells Not Reportable 04/15/21 05:37 Crenated Cell Not Reportable 04/15/21 05:37 Elliptocytes Not Reportable 04/15/21 05:37 Acanthocytes (Spur) Not Reportable 04/15/21 05:37 Rouleaux Not Reportable 04/15/21 05:37 Hemoglobin C Crystals Not Reportable 04/15/21 05:37 Schistocytes Not Reportable 04/15/21 05:37 Malaria parasites Not Reportable 04/15/21 05:37 [place] Bodies Not Reportable 04/15/21 05:37 Hem Pathologist Commnt No 04/15/21 05:37 Sodium 144 mmol/L (137-145) 04/15/21 05:37 Potassium 4.3 mmol/L (3.6-5.0) 04/15/21 05:37 Chloride 108.1 mmol/L (98-107) H 04/15/21 05:37 Carbon Dioxide 23 mmol/L (22-30) 04/15/21 05:37 Anion Gap 17 mmol/L 04/15/21 05:37 BUN 44 mg/dL (7-17) H 04/15/21 05:37 Creatinine 1.8 mg/dL (0.6-1.2) H 04/15/21 05:37 Estimated GFR 33 ml/min 04/15/21 05:37 BUN/Creatinine Ratio 24 % 04/15/21 05:37 Glucose 150 mg/dL (65-100) H 04/15/21 05:37 POC Glucose 252 mg/dL (70-105) H 04/18/21 11:26 Hemoglobin A1c 6.7 % (4-6) H 04/15/21 05:37 Calcium 10.0 mg/dL (8.4-10.2) 04/15/21 05:37 Total Bilirubin 0.30 mg/dL (0.1-1.2) 04/15/21 05:37 AST 27 units/L (5-40) 04/15/21 05:37 ALT 28 units/L (7-56) 04/15/21 05:37 Alkaline Phosphatase 78 units/L (35-129) 04/15/21 05:37 Total Protein 5.9 g/dL (6.3-8.2) L 04/15/21 05:37 Albumin 2.7 g/dL (3.9-5) L 04/15/21 05:37 Albumin/Globulin Ratio 0.8 % 04/15/21 05:37 Triglycerides 73 mg/dL (2-149) 04/15/21 05:37 Cholesterol 106 mg/dL (50-199) 04/15/21 05:37 LDL Cholesterol Direct 59 mg/dL (50-130) 04/15/21 05:37 HDL Cholesterol 33 mg/dL (40-59) L 04/15/21 05:37 Cholesterol/HDL Ratio 3.21 % 04/15/21 05:37 TSH 2.780 mlU/mL (0.270-4.200) 04/15/21 05:37 Ruelas/IV: Voiding Method Toilet Active Medications - Current Medications Current Medications: Generic Name Dose Route Start Last Admin Trade Name Freq PRN Reason Stop Dose Admin Allopurinol 150 mg 04/14/21 10:00 04/18/21 09:24 Allopurinol 100 Mg Tab PO 150 mg QDAY MARISEL Administration Calcitriol 0.25 mcg 04/20/21 10:00 Calcitriol 0.25 Mcg Cap PO Tu MARISEL Clonidine HCl 0.1 mg 04/14/21 10:00 04/18/21 09:25 Clonidine 0.1 Mg Tab PO 0.1 mg DAILY MARISEL Administration Dextrose 50 ml 04/14/21 17:43 Dextrose 50% In Water (25gm) 50 Ml Syringe IV Q30MIN PRN Hypoglycemia Protocol Furosemide 40 mg 04/14/21 10:00 04/18/21 09:25 Furosemide 40 Mg Tab PO 40 mg QDAY MARISEL Administration Glipizide 5 mg 04/14/21 10:00 04/18/21 09:25 Glipizide 5 Mg Tab PO 5 mg QDAY MARISEL Administration Hydralazine HCl 50 mg 04/13/21 20:00 04/18/21 14:31 Hydralazine 25 Mg Tab PO 50 mg TID MARISEL Administration Hydroxyzine Pamoate 25 mg 04/14/21 11:00 Hydroxyzine Pamoate 25 Mg Cap PO BID PRN Anxiety Insulin Human Lispro 0 unit 04/15/21 11:30 04/18/21 16:59 Insulin Lispro 100 Unit/Ml SUB-Q Not Given ACHS [facility] Protocol Levothyroxine Sodium 75 mcg 04/14/21 06:00 04/18/21 05:57 Levothyroxine 75 Mcg Tab PO 75 mcg 0600 MARISEL Administration Magnesium Oxide 400 mg 04/13/21 22:00 04/18/21 09:25 Magnesium Oxide 400 Mg Tab PO 400 mg BID MARISEL Administration Methocarbamol 500 mg 04/13/21 19:34 Methocarbamol 500 Mg Tab PO TID PRN muscle spasms Montelukast Sodium 10 mg 04/14/21 18:00 04/17/21 17:41 Montelukast 10 Mg Tab PO 10 mg QPM MARISEL Administration Sertraline HCl 25 mg 04/14/21 11:00 04/18/21 09:25 Sertraline 25 Mg Tab PO 25 mg QDAY MARISEL Administration Trazodone HCl 100 mg 04/18/21 22:00 Trazodone 100 Mg Tab PO QHS MARISEL
[2021-04-18] MEDS: MONTELUKAST 10 MG TAB PO SCH (18:21)
[2021-04-18] MEDS: traZODone 100 MG TAB PO SCH (21:45)
[2021-04-19] MEDS: LEVOTHYROXINE 75 MCG TAB PO SCH (06:21)
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
[2021-04-19] MEDS: INSULIN LISPRO 100 UNIT/ML SUB-Q SCH ×4 (08:47→21:42)
[2021-04-19] MEDS: SERTRALINE 25 MG TAB PO SCH (10:16)
[2021-04-19] MEDS: glipiZIDE 5 MG TAB PO SCH (10:18)
[2021-04-19] MEDS: MAGNESIUM OXIDE 400 MG TAB PO SCH ×2 (10:18→21:00)
[2021-04-19] MEDS: allopurinoL 100 MG TAB PO SCH (10:18)
[2021-04-19] MEDS: FUROSEMIDE 40 MG TAB PO SCH (10:18)
[2021-04-19] MEDS: hydrALAZINE 25 MG TAB PO SCH ×3 (10:26→20:52)
[2021-04-19] MEDS: cloNIDine 0.1 MG TAB PO SCH (10:28)
[2021-04-19] MEDS: MONTELUKAST 10 MG TAB PO SCH (19:46)
[2021-04-19] MEDS: traZODone 100 MG TAB PO SCH (21:00)
[2021-04-20] MEDS: LEVOTHYROXINE 75 MCG TAB PO SCH (05:49)
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
[2021-04-20] MEDS: INSULIN LISPRO 100 UNIT/ML SUB-Q SCH ×4 (08:49→21:45)
[2021-04-20] MEDS: MAGNESIUM OXIDE 400 MG TAB PO SCH ×2 (09:05→21:34)
[2021-04-20] MEDS: allopurinoL 100 MG TAB PO SCH (09:06)
[2021-04-20] MEDS: glipiZIDE 5 MG TAB PO SCH (09:06)
[2021-04-20] MEDS: FUROSEMIDE 40 MG TAB PO SCH (09:06)
[2021-04-20] MEDS: SERTRALINE 25 MG TAB PO SCH (09:06)
[2021-04-20] MEDS: hydrALAZINE 25 MG TAB PO SCH ×3 (09:10→20:18)
[2021-04-20] MEDS: cloNIDine 0.1 MG TAB PO SCH (09:11)
[2021-04-20] MEDS ORDERED: CALCITRIOL 0.25 MCG CAP PO SCH (10:00)
[2021-04-20] MEDS: MONTELUKAST 10 MG TAB PO SCH (18:38)
[2021-04-20] MEDS ORDERED: MAGNESIUM CITRATE 300 ML ORAL LIQD PO ONE (19:40)
--- NOTE | 2021-04-20 20:28 | XRay Report ---
CHEST 1 VIEW 04/20/2021 7:15 PM INDICATION / CLINICAL INFORMATION: cough. COMPARISON: None available. FINDINGS: SUPPORT DEVICES: Right chest wall cardiac support devices. HEART / MEDIASTINUM: No significant abnormality. LUNGS / PLEURA: No significant pulmonary or pleural abnormality. No pneumothorax. ADDITIONAL FINDINGS: No significant additional findings. IMPRESSION: 1. No acute findings. Signer Name: Melvin Rodríguez DO Signed: 04/20/2021 8:24 PM Workstation Name: [id number]
[2021-04-20] MEDS: traZODone 100 MG TAB PO SCH (21:34)
[2021-04-21] MEDS: LEVOTHYROXINE 75 MCG TAB PO SCH (06:21)
[2021-04-21] MEDS: INSULIN LISPRO 100 UNIT/ML SUB-Q SCH ×4 (07:49→21:21)
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
[2021-04-21] MEDS: MAGNESIUM OXIDE 400 MG TAB PO SCH ×2 (10:39→21:21)
[2021-04-21] MEDS: SERTRALINE 25 MG TAB PO SCH (10:39)
[2021-04-21] MEDS: glipiZIDE 5 MG TAB PO SCH (10:39)
[2021-04-21] MEDS: cloNIDine 0.1 MG TAB PO SCH (10:39)
[2021-04-21] MEDS: allopurinoL 100 MG TAB PO SCH (10:39)
[2021-04-21] MEDS: FUROSEMIDE 40 MG TAB PO SCH (10:39)
[2021-04-21] MEDS: hydrALAZINE 25 MG TAB PO SCH ×3 (10:47→20:56)
[2021-04-21] MEDS: MONTELUKAST 10 MG TAB PO SCH (18:05)
[2021-04-21] MEDS: traZODone 100 MG TAB PO SCH (21:21)
[2021-04-22] MEDS: LEVOTHYROXINE 75 MCG TAB PO SCH (05:49)
[2021-04-22] MEDS: SERTRALINE 25 MG TAB PO SCH (09:20)
[2021-04-22] MEDS: FUROSEMIDE 40 MG TAB PO SCH (09:20)
[2021-04-22] MEDS: MAGNESIUM OXIDE 400 MG TAB PO SCH (09:21)
[2021-04-22] MEDS: hydrALAZINE 25 MG TAB PO SCH ×2 (09:21→14:40)
[2021-04-22] MEDS: allopurinoL 100 MG TAB PO SCH (09:21)
[2021-04-22] MEDS: glipiZIDE 5 MG TAB PO SCH (09:21)
[2021-04-22] MEDS: cloNIDine 0.1 MG TAB PO SCH (09:22)
[2021-04-22] MEDS: INSULIN LISPRO 100 UNIT/ML SUB-Q SCH ×2 (09:23→12:04)
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
[2021-04-22 14:32] VITALS: BP 155/72
== END 2021-04-22 14:45 | disposition home or self-care (01) | DRG 884 ==
LOC: UNDOADMIN 12:13 → 3A 12:13 → 5A 17:47
PROVIDERS: ADMIT Psychiatry & Neurology Psychiatry; ATTEND Psychiatry & Neurology Psychiatry
DX: F03.91 Unspecified dementia, unspecified severity, with behavioral disturbance (principal); M1A.9XX0 Chronic gout, unspecified, without tophus (tophi); I67.2 Cerebral atherosclerosis; I10 Essential (primary) hypertension; E11.9 Type 2 diabetes mellitus without complications; E03.9 Hypothyroidism, unspecified; J45.909 Unspecified asthma, uncomplicated; M81.0 Age-related osteoporosis without current pathological fracture; Z96.649 Presence of unspecified artificial hip joint; Z95.0 Presence of cardiac pacemaker; Z83.3 Family history of diabetes mellitus; Z82.49 Family history of ischemic heart disease and other diseases of the circulatory system
CPT/HCPCS: 36415; 71045; 80053; 80061; 82962; 83036; 84443; 85007; 85025; G0378; J1815